=== PATIENT | male | born 1980 | race African-American/Black ===

== ENCOUNTER 2019-05-08 08:14 | Emergency (ER) | payer BC, SELFPAY ==
[2019-05-08 08:15] VITALS: BP 146/109; PULSE 98; RESP 16; TEMP 36.7; O2SAT 97; BMI 30.4
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
== END 2019-05-08 08:36 | disposition home or self-care (01) ==
LOC: ED 08:30
PROVIDERS: Emergency Provider Emergency Medicine
DX: S40.871A Other superficial bite of right upper arm, initial encounter (principal); Y04.1XXA Assault by human bite, initial encounter; Y93.9 Activity, unspecified; Y92.9 Unspecified place or not applicable
CPT/HCPCS: 99282

== ENCOUNTER 2020-11-11 12:39 | Emergency (ER) | payer BC, SELFPAY ==
[2020-11-11 12:39] VITALS: BP 169/86; PULSE 95; RESP 16; TEMP 36.3; O2SAT 97; BMI 35.2
--- NOTE | 2020-11-11 12:57 | CT_ITS ---
STUDY: CT BRAIN WITHOUT CONTRAST REASON FOR EXAM: Male, 40 years old. Headache RADIATION DOSAGE (If Supplied By Facility): CTDIvol = ( 44.99 ) mGy, DLP = ( 762.36 ) mGycm TECHNIQUE: Transaxial CT imaging of the brain was performed without administration of intravenous contrast material. Individualized dose optimization techniques were used for this CT. COMPARISON: No relevant priors. FINDINGS: Normal soft tissue structures. Normal calvarium. Normal size ventricles and extra-axial spaces for the patient''s age. Normal white matter tracts of the cerebral hemispheres. Normal basal ganglia and thalami. Normal brainstem. Normal cerebellum. There is no intracranial hemorrhage. There are no findings of an acute ischemic infarction. Normal visualized paranasal sinuses. CT/Brain/Head without Contrast IMPRESSION: Normal unenhanced CT scan of the brain. Electronically Signed: Dano Truong MD at 13:47 EDT , Service support ,
--- NOTE | 2020-11-11 12:58 | EX.ED.DYSGE1 ---
HPI History of Present Illness Chief Complaint: Dizziness Informant: patient Onset/Context/Timing Onset: Today Quality: Lightheaded Location: Right side of head Worsened by: Nothing Relieved by: Nothing Associated Symptoms Associated Symptoms: Numbness over the right side of his head Narrative Narrative: Patient presents with dizziness that he describes as lightheaded. Patient states he had a similar episode 2 days ago at home. 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 Patient states he felt like he was going to pass out. Patient states his episode Monday lasted several hours. Patient admits to some numbness over the right side of his head. Patient admits to mild headache. Patient denies any neck pain. Patient denies any hearing changes. [facility] Medical History Hypertension Allergy/AdvReac Type Severity Reaction Status Date / Time lisinopril Allergy Swelling Verified 11/11/20 12:42 no surgical history Social History (Updated 11/11/20 @ 13:[address] Devante Yousif DO) Smoking Status: Current every day smoker alcohol intake: current alcohol intake frequency: a few times a week ROS ROS ED Constitutional Constitutional ED: Denies chills or fever(s) Eyes Eyes: Denies blurry vision or change in vision ENT ENT ED: Denies rhinorrhea or sore throat Cardiovascular Cardiovascular: Denies chest pain or palpitations Respiratory/Chest Respiratory/Chest: Denies cough or dyspnea Gastrointestinal Gastrointestinal: Denies nausea or vomiting Genitourinary Genitourinary ED: Denies dysuria or hematuria Musculoskeletal Musculoskeletal: Reports back pain; Denies neck pain Integumentary Denies abscess or rash Neurologic Neurologic: Reports headache(s) and weakness Allergic/Immunologic Allergic/Immunologic ED: Denies mouth swelling or urticaria EXAM Physical Exam Const Vital Signs: 11/11/20 12:39 11/11/20 13:00 11/11/20 14:50 Temperature 97.4 F L Temperature Source Temporal Pulse Rate 95 89 Respiratory Rate 16 25 H Respiratory Pattern Normal Blood Pressure 169/86 H 173/90 H Blood Pressure Mean 113 117 Pulse Ox 97 100 Oxygen Delivery Method Room Air Room Air Positive well nourished and well developed General Appearance ED: well developed HEENT normocephalic and atraumatic Eyes PERRL and EOMs intact bilaterally Eyes Narrative: Funduscopic examination is benign Neck supple and no JVD Resp normal respiratory effort and clear to auscultation bilaterally Cardio no murmurs Rate: regular rate Rhythm: regular rhythm GI non-tender and non-distended Auscultation: normoactive bowel sounds Palpation: soft Extremity normal to inspection General Extremety ED: Negative for edema or tenderness General Extremity: Negative for edema Neuro oriented x3, CN's II-XII intact bilaterally and no sensory deficits noted Sensorium / Orientation: alert Motor Exam: strength 5/5 throughout Psych mental status grossly normal Skin Rashes: no rashes MDM MDM MDM Narrative Medical decision making narrative: Patient was given IV fluids, Reglan, and Benadryl. CBC, PT with INR, PTT and comprehensive metabolic profile were obtained and were all within normal limits. CT scan of the brain was obtained. There is no acute intracranial abnormality. This was interpreted by the radiologist and reviewed by myself. Patient is feeling better on reevaluation. Patient was advised to follow-up with his primary care physician in 5 to 7 days for further evaluation. Patient understood and was agreeable with the plan. All questions were answered. Lab Data Labs: Laboratory Results - last 24 hr 11/11/20 11/11/20 11/11/20 13:15 13:15 13:15 WBC 7.5 RBC 4.59 L Hgb 14.2 Hct 42.6 MCV 92.8 MCH 30.9 MCHC 33.3 RDW Std Deviation 49.1 H RDW Coeff of Duane 14.3 Plt Count 337 MPV 11.0 Immature Gran % (Auto) 0.100 Neut % (Auto) 64.9 Lymph % (Auto) 24.2 Forrest % (Auto) 9.4 Eos % (Auto) 1.1 Baso % (Auto) 0.3 Absolute Neuts (auto) 4.9 Absolute Lymphs (auto) 1.81 Nucleated RBC % 0 ESR 13 PT 11.3 L INR 0.9 APTT 28.9 Sodium 138 Potassium 3.7 Chloride 102 Carbon Dioxide 31.0 Anion Gap 5 BUN 20 H Creatinine 1.26 Estim Creat Clear Calc 87.25 Est GFR (MDRD) Af Amer 82 Est GFR (MDRD) Non-Af 68 BUN/Creatinine Ratio 15.9 Glucose 91 Calcium 9.7 Total Bilirubin 0.70 AST 43 H ALT 44 Alkaline Phosphatase 66 Total Protein 8.0 Albumin 3.9 Globulin 4.1 Albumin/Globulin Ratio 1.0 Radiography Diagnostic Testing: Radiology Impression Brain CT 11/11/20 12:57 IMPRESSION: Normal unenhanced CT scan of the brain. Electronically Signed: Dano Truong MD at 13:47 EDT , Service support , Discharge Plan Triage Chief Complaint: Dizziness ED Provider: Devante Yousif Dx/Rx/DC Orders Clinical Impression: Episodic lightheadedness Instructions: ED Dizziness, Uncertain Cause Primary Care Provider: Care Physician,No Primary Referrals: Ishan Santana, [NON-STAFF] - 5-7 Days Care Physician,No Primary [Primary Care Provider] - Disposition Disposition: Home, self care
[2020-11-11] MEDS: DiphenhydrAMINE 50 MG/ML Syringe 25 MG IV (13:21)
[2020-11-11] MEDS: 0.9% Normal Saline 1,000 ML 1000 ML IV (13:21)
[2020-11-11] MEDS: Metoclopramide 10 MG/2 ML Vial IV (13:22)
[2020-11-11 13:36] LABS: Absolute Lymphocyte Count 1.81 X10^3/uL (0.83-4.51); Absolute Neutrophil Count 4.9 X10^3/uL (2.0-7.7); Basophil# 0.02 X10^3/uL; Basophil% 0.3 % (0-1); Eosinophil# 0.08 X10^3/uL; Eosinophils% 1.1 % (0-5); Hematocrit 42.6 % (40-54); Hemoglobin 14.2 g/dL (13.0-16.5); Lymphocyte # 1.81 X10^3/ul (0.83-4.51); Lymphocyte % 24.2 % (19-41); Mean Corp Hgb Conc 33.3 g/dL (32-36); Mean Corpuscular Hgb 30.9 pg (27.0-32.0); Mean Corpuscular Volume 92.8 fL (80-94); Monocyte% 9.4 % (0-10); NRBC Flagged by Analyzer 0 % (0-5); Neutrophil # 4.86 X10^3/uL (2.7-7.7); Neutrophil % 64.9 % (47-70); Platelet Count 337 K/mm3 (150-450); RBC Distribution Width CV 14.3 % (11.6-14.6); RBC Distribution Width SD 49.1 fl (35.1-43.9); Red Blood Count 4.59 M/mm3 (4.6-6.2); White Blood Count 7.5 K/mm3 (4.4-11.0)
[2020-11-11 13:44] LABS: International Normalized Ratio 0.9; Prothrombin Time (Protime)PT. 11.3 SECONDS (11.7-14.9)
[2020-11-11 13:45] LABS: AST(SGOT) 43 U/L (15-37); Alanine Aminotransfer ALT/SGPT 44 U/L (16-61); Albumin, Serum 3.9 g/dL (3.2-5.0); Alkaline Phosphatase 66 U/L (45-117); Anion Gap 5 (5-15); BUN 20 mg/dL (7-18); BUN/Creat Ratio 15.9 RATIO (10-20); Calcium,Total 9.7 mg/dL (8.5-10.1); Chloride 102 mmol/L (98-107); Creatinine, Serum 1.26 mg/dL (0.70-1.30); EST Glomerular Filtration Rate 68 mL/min (>60); Est Glom Filt Rate - Afr Amer 82 mL/min (>60); Estimated Creatinine Clearance 87.25 ml/min; Globulin 4.1 g/dL (2.2-4.2); Glucose 91 mg/dL (74-106); Partial Thromboplast Time 28.9 Seconds (24.1-36.2); Potassium 3.7 mmol/L (3.5-5.1); Sodium Level 138 mmol/L (136-145)
[2020-11-11 13:46] LABS: Erythrocyte Sedimentation Rate 13 mm/hr (0-20)
[2020-11-11 14:50] VITALS: BP 173/90; PULSE 89; RESP 25; O2SAT 100
== END 2020-11-11 15:45 | disposition home or self-care (01) ==
PROVIDERS: Emergency Provider Emergency Medicine
DX: R42 Dizziness and giddiness (principal); F17.200 Nicotine dependence, unspecified, uncomplicated; R51.9 Headache, unspecified
CPT/HCPCS: 70450; 80053; 85025; 85610; 85652; 85730; 96361; 96374; 96375; 99282; J7030

== ENCOUNTER → 2023-04-07 | Outpatient (CLI) | payer OTHER, SELFPAY ==
[2023-04-11 17:07] LABS: QNTFERON TB Mitogen Value > 10.00 IU/mL (.); QNTFERON TB Nil Value 0.08 IU/mL (.); QNTFERON TB1+ Ag Value 0.09 IU/mL (.); QNTFERON TB2+ Ag Value 0.08 IU/mL (.); QNTIFERON TB Positive Criteria Negative (Negative)
== END | disposition home or self-care (01) ==
LOC: MTLAB 11:54
PROVIDERS: Referring Provider Physician Assistant Surgical; Visit Provider Physician Assistant Surgical
DX: Z11.1 Encounter for screening for respiratory tuberculosis (principal)
CPT/HCPCS: 36415; 86480

== ENCOUNTER 2023-09-07 08:38 | Emergency (ER) | payer BC, SELFPAY ==
[2023-09-07 08:40] VITALS: BP 142/76; PULSE 90; RESP 16; TEMP 36.8; O2SAT 97; BMI 31.0
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
[2023-09-07 11:04] VITALS: BP 138/68; PULSE 77; RESP 18; O2SAT 97
--- OUTSIDE RECORDS SUMMARY | 2023-09-07 12:32 | XMS RPT_ITS | CCD ---
Author Name Unknown Address [address] [place] [address] Organization [facility] Care Team Providers Care Mend Worker Name Role Phone ECTOR REYES DO Primary Care Physician [phone] ARELIS KOENIG MD Attending Unavailable ECTOR REYES DO Primary Care Unavailable ECTOR REYES DO Attending Unavailable ECTOR REYES DO Primary Care Unavailable Jennifer Campoverde DO Primary Care Provider JENNIFER CAMPOVERDE Attending Unavailable JENNIFER CAMPOVERDE Primary Care Unavailable Allergies Allergy Classification Reported Allergen(s) Allergy Type Date of Onset Reaction(s) Facility (5 sources) Angiotensin-conv erting enzyme inhibitor agent; Translations: [angiotensin converting enzyme inhibitors] Drug allergy 1 Angioedema, Swelling [facility] Work Phone: (3 sources) Lisinopril; Translations: [lisinopril] Drug Allergy lips swell [facility] Work Phone: (2 sources) Lisinopril Propensity to adverse reactions [address] [facility] Medications Current Medications Medication Drug Class(es) Dates Sig (Normalized) Sig (Original) hydroCHLOROthiazide 25 mg oral tablet (5 sources) Thiazide Diuretic Start: 3 End: 3 take 1 tablet by mouth once daily hydroCHLOROthiazide (HYDRODiuril) 25 MG tablet Indications: Essential hypertension Take 1 tablet (25 mg) by mouth daily. 90 tablet 3 06/14/2023 Active Problems Active Problems Problem Classification Problem Date Documented Da te Episodic/Chronic Allergic reactions (1 source) Allergy to drug 06-15-2022 Episodic Anxiety disorders (2 sources) Panic attack 12-01-2021 Chronic Deficiency and other anemia (2 sources) Anemia 12-01-2021 Episodic Essential hypertension (6 sources) Hypertensive disorder; Translations: [Essential hypertension] Onset: 06-14-2023 09-04-2019 Chronic Gastrointestinal hemorrhage (3 sources) Hematochezia 11-19-2019 Episodic Heart valve disorders (3 sources) Heart murmur 01-13-2021 Episodic Hypertension with complications and secondary hypertension (3 sources) Hypertensive urgency 11-15-2019 Chronic Past or Other Problems Problem Classification Problem Date Documented Da te Episodic/Chronic Nutritional deficiencies (2 sources) Deficiency of other specified B group vitamins; Translations: [Deficiency of other specified B group vitamins] Onset: 09-02-2022 Episodic Results Test Name Value Interpretation Reference Range Facil ity Vital Signs Date Time Vital Sign Value Performing Clinician Radha zambrano 06-14-2023 07:59-0500 Body height 190.5 cm Jennifer Campoverde DO Work Phone: [facility] 06-14-2023 07:59-0500 Body mass index (BMI) [Ratio] 33.12 kg/m2 Jennifer Campoverde DO Work Phone: [facility] 06-14-2023 07:59-0500 Body weight 120.2 kg Jennifer Campoverde DO Work Phone: [email or web address] [facility] 06-14-2023 07:59-0500 Diastolic blood pressure 77 mm[Hg] Jennifer Campoverde DO Work Phone: [facility] 06-14-2023 07:59-0500 Heart rate 80 /min Jennifer Campoverde DO Work Phone: [email or web address] [facility] 06-14-2023 07:59-0500 Systolic blood pressure 125 mm[Hg] Jennifer Campoverde DO Work Phone: [facility] 12-24-2021 11:14-0400 Body temperature 98.6 [degF] DR JAMA MILLER DO [facility] 12-24-2021 11:14-0400 Body weight 115.[address] YUN PAUL DO [facility] 12-24-2021 11:14-0400 Diastolic blood pressure 72 mm[Hg] DR YUN PAUL DO [facility] 12-24-2021 11:14-0400 Heart rate 91 /min DR JAMA MILLER DO [facility] 12-24-2021 11:14-0400 Respiratory rate 16 /min DR YUN ROBLAUREEN DO [facility] 12-24-2021 11:14-0400 Systolic blood pressure 117 mm[Hg] DR YUN ROBLAUREEN DO [facility] 11-29-2021 18:03-0400 Diastolic blood pressure 90 mm[Hg] CHELLE CADE MD [facility] 11-29-2021 18:03-0400 Heart rate 81 /min CHELLE CADE MD [facility] 11-29-2021 18:03-0400 Mean blood pressure 107 mm[Hg] CHELLE CADE MD [facility] 11-29-2021 18:03-0400 Respiratory rate 16 /min CHELLE CADE MD [facility] 11-29-2021 18:03-0400 Systolic blood pressure 142 mm[Hg] CHELLE CADE MD [facility] 11-29-2021 16:23-0400 Body temperature 98.24 [degF] CHELLE CADE MD [facility] 11-29-2021 16:23-0400 Body weight 113.6 kg CHELLE CADE MD [facility] 11-29-2021 16:23-0400 Diastolic blood pressure 93 mm[Hg] CHELLE CADE MD [facility] 11-29-2021 16:23-0400 Heart rate 84 /min CHELLE CADE MD [facility] 11-29-2021 16:23-0400 Mean blood pressure 109 mm[Hg] CHELLE CADE MD [facility] 11-29-2021 16:23-0400 Respiratory rate 16 /min CHELLE CADE MD [facility] 11-29-2021 16:23-0400 Systolic blood pressure 141 mm[Hg] CHELLE CADE MD [facility] Encounters Encounter Date Encounter Type Care Provider Facility Start: 06-14-2023 End: 06-14-2023 ambulatory [facility] Start: 06-14-2023 End: 06-14-2023 Encounter for general adult medical examination without abnormal findings JENNIFER [facility] Start: 06-14-2023 End: 06-14-2023 Initial preventive medicine new patient 40-64yrs Jennifer Campoverde DO Work Phone: [facility] Procedures Date Procedure Procedure Detail Performing Clinician Start: 06-14-2023 Adult depression scr eening assessment Jennifer Campoverde DO Work Phone: Start: 02-08-2019 Cardiovascular stress testing CHELLE CADE MD Start: 02-08-2019 Echocardiography CHELLE ARCINIEGA MD Plan of Treatment Date Care Activity Detail Author Start: 2042 RSV Immunization age d 60 or older (1 - 1-dose 60+ series) RSV Immunization aged 60 or older (1 - 1-dose 60+ series) [facility] Start: 01-04-2032 Zoster Vaccines (1 of 2) Zoster Vacc linda (1 of 2) [facility] Start: 04-14-2030 DTaP/Tdap/Td Vaccine s (3 - Td or Tdap) DTaP/Tdap/Td Vaccines (3 - Td or Tdap) [facility] Start: 06-17-2024 End: 06-17-2024 Patient encounter procedure 06/17/2024 7:40 AM EST Office Visit [facility] [address] [place] [address] Jennifer Campoverde DO [address] [place] [address] [facility] Start: 06-14-2024 Depression Screening Depression Scre ening [facility] Start: 06-14-2023 End: 06-14-2024 CBC panel - Blood by Automated count CBC Lab Routine Annual physical exam Expected: 06/14/2023 (Approximate), Expires: 06/14/2024 [facility] Work Phone: Immunizations Immunization Date Immunization Notes Care Provider Fa cility 08-19-2021 COVID-19, mRNA, LNP- S, PF, 100 mcg or 50 mcg dose; Translations: [Moderna COVID-19 Vaccine] CHELLE CADE MD [facility] 02-15-2021 SARS-CoV-2 (COVID-19 ) [id number] vaccine CHELLE CADE MD [facility] Payers Date Payer Category Payer Self-pay 1980 Unknown [id number] 1980 Unknown [id number] Social History Date Type Detail Facility Start: 01-13-2021 End: 06-14-2023 Tobacco smoking status Never smoked tobacco (finding) [facility] Start: 1980 Sex Assigned At Male A [facility] Start: 06-14-2023 Tobacco use and exposure Smoke less tobacco non-user [facility] Start: 06-14-2023 Alcohol intake Current drinke r of alcohol (finding) [facility] Start: 06-14-2023 History of Social function [facility] Start: 06-14-2023 [facility] Utilities [facility] Has the [employer], [employer], or [employer] threatened to shut off services in your home in past 12Mo Yes [facility] Are you now , , , , never or living with a partner? Never [facility] How often to you hav e a drink containing alcohol? 2-4 times a month [facility] How many standard dr inks containing alcohol do you have on a typical day? 1 or 2 [facility] How often do you hav e 6 or more drinks on 1 occasion? Never [facility] How hard is it for y ou to pay for the very basics like food, housing, medical care, and heating Somewhat hard [facility] Do you feel stress - tense, restless, nervous, or anxious, or unable to sleep at night because your mind is troubled all the time - these days [OSQ] Rather much [facility] (I/We) worried wheth er (my/our) food would run out before (I/we) got money to buy more. Sometimes true [facility] In the past 12 month s, has lack of transportation kept you from medical appointments or from getting medications? No [facility] At any time in the p ast 12 months, were you homeless or living in jail [including now]? No [facility] Start: 06-14-2023 Gender identity Identifies as male gender (finding) [facility] Start: 06-14-2023 Sexual orientation Heterosexual (fin ding) [facility] Tobacco smoking stat [facility] Tobacco smoking consumption unknown [facility] NEGATED: Highlighted rowStart: CLARIBELF History of tobacco use Passive smoker [facility] Functional Status Date Assessment Result Facility 12-24-2021 Functional Status Standard Safet y ID band on, Call device within reach, Bed in low position, Wheels locked, Upper/Half-Length side-rails up, Bedside Cart Locked, Safety level maintained [facility] 11-29-2021 Functional Status Independent [facility] 11-29-2021 Functional Status Standard Safet y ID band on, Allergy Band on, Call device within reach, Bed in low position, Wheels locked, Upper/Half-Length side-rails up, Phone within reach, personal items within reach [facility] Mental Status Date Assessment Result Facility 12-24-2021 Mental Status Oriented x 4 [facility] 11-29-2021 Mental Status Orientation Oriented x 4 [facility] 11-29-2021 Mental Status [facility] Clinical Notes 03-16-2021 to 06-14-2023 Jennifer Campoverde DO - 06/14/2023 7:40 AM ESTPatient InstructionsTelephone Encounter - Alice Chaney - 06/09/2023 5:48 PM ESTTelephone Encounter - Alice Chaney - 06/09/2023 5:48 PM ESTLaboratory Note Date & Type Note Facility 06-14-2023 History of Present illness Narrative Images from the original note were not included. [facility] [address] [place] [address] Visit Type: New Patient Appointment PCP: Jennifer Campoverde DO Reason for Visit: New Patient and Establish Care (Varicose veins on R leg for years. ) Assessment and Plan Lou was seen today for new patient and establish care. Diagnoses and all orders for this visit: Annual physical exam Comments: discussed vaccinations - declined today. colon cancer screen at age 47yo. routine labs ordered. Orders: - CBC; Future - Comprehensive metabolic panel; Future - Lipid panel; Future - CBC - Comprehensive metabolic panel - Lipid panel Essential hypertension Comments: well controlled on 3 drug regimen. Continue metop, hctz and valsartan. Monitor labs. Encouraged more cardio exercise. Orders: - valsartan (Diovan) 80 MG tablet; Take 1 tablet (80 mg) by mouth daily. - metoprolol succinate XL (Toprol-XL) 100 MG 24 hr tablet; Take 1 tablet (100 mg) by mouth daily. - hydroCHLOROthiazide (HYDRODiuril) 25 MG tablet; Take 1 tablet (25 mg) by mouth daily. Asymptomatic varicose veins of right lower extremity Comments: given the risk of these veins causing superficial clots and proximity to deep circulation is unclear, refer to vascular to discuss more definitive mgmt. Orders: - MG Vascular Surgery; Future Screening for HIV without presence of risk factors - HIV-1 and HIV-2 Antigen-Antibody Screen; Future - HIV-1 and HIV-2 Antigen-Antibody Screen Follow up in about 1 year (around 06/14/2024). Subjective HPI Presents for a new patient visit. 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 He has the following concerns today: Yesterday ran out of valsartan. Going to the gym 3-5 days per week. Tried the treadmill for a while, but really boring. Varicose veins in legs - R popliteal space is the worst - no pain - not sure about why he has these, unclear if fam hx - no prior injury or surgery to the RLE Review of Systems Pertinent ROS noted in the HPI and all other systems are negative. Allergies Allergen Reactions Ruel Inhibitors Angioedema and Swelling Other reaction(s): lips swell Lisinopril Swelling Outpatient Medications Prior to Visit Medication Sig Dispense Refill hydroCHLOROthiazide (HYDRODiuril) 25 MG tablet Take 25 mg by mouth daily. metoprolol succinate XL (Toprol-XL) 100 MG 24 hr tablet Take 100 mg by mouth daily. valsartan (Diovan) 80 MG tablet Take 80 mg by mouth daily. No facility-administered medications prior to visit. Past Medical History: Diagnosis Date Hypertension Social History Socioeconomic History Marital status: Single Occupational History Occupation: factory work Tobacco Use Smoking status: Never Passive exposure: Never Smokeless tobacco: Never Vaping Use Vaping Use: Never used Substance and Sexual Activity Alcohol use: Yes Drug use: Never Social Determinants of Health Financial Resource Strain: Medium Risk (06/14/2023) Overall Financial Resource Strain (CARDIA) Difficulty of Paying Living Expenses: Somewhat hard Food Insecurity: Food Insecurity Present (06/14/2023) Hunger Vital Sign Worried About Running Out of Food in the Last Year: Sometimes true Ran Out of Food in the Last Year: Sometimes true Transportation Needs: No Transportation Needs (06/14/2023) PRAPARE - Transportation Lack of Transportation (Medical): No Lack of Transportation (Non-Medical): No Physical Activity: Sufficiently Active (06/14/2023) Exercise Vital Sign Days of Exercise per Week: 4 days Minutes of Exercise per Session: 120 min Stress: Stress Concern Present (06/14/2023) [employer] [place] [employer] - Occupational Stress Questionnaire Feeling of Stress : Rather much Social Connections: Moderately Integrated (06/14/2023) Social Connection and Isolation Panel [NHANES] Frequency of Communication with Friends and Family: More than three times a week Frequency of Social Gatherings with Friends and Family: Once a week Attends Taoism Services: 1 to 4 times per year Active Member of Clubs or Organizations: Yes Attends Club or Organization Meetings: More than 4 times per year Marital Status: Never Housing Stability: High Risk (06/14/2023) Housing Stability Vital Sign Unable to Pay for Housing in the Last Year: Yes Number of Places Lived in the Last Year: 1 Unstable Housing in the Last Year: No History reviewed. No pertinent surgical history. Family History Problem Relation Name Age of Onset Other Mother hypoglycimia. Alzheimer's disease Maternal Grandmother Colon cancer Maternal Grandfather Objective BP 125/77 (BP Location: Left arm, Patient Position: Sitting, BP Cuff Size: Large adult) Pulse 80 Ht 6' 3 (1.905 m) Wt 265 lb (120 kg) BMI 33.12 kg/m Physical Exam Vitals reviewed. Constitutional: General: He is not in acute distress. Appearance: Normal appearance. HENT: Head: Normocephalic and atraumatic. Right Ear: External ear normal. There is impacted cerumen. Left Ear: External ear normal. There is impacted cerumen. Mouth/Throat: Mouth: Mucous membranes are moist. Pharynx: Oropharynx is clear. Tonsils: No tonsillar exudate or tonsillar abscesses. 1+ on the right. 1+ on the left. Eyes: Extraocular Movements: Extraocular movements intact. Conjunctiva/sclera: Conjunctivae normal. Pupils: Pupils are equal, round, and reactive to light. Neck: Thyroid: No thyromegaly. Cardiovascular: Rate and Rhythm: Normal rate and regular rhythm. Pulses: Normal pulses. Heart sounds: No murmur heard. Pulmonary: Effort: Pulmonary effort is normal. No respiratory distress. Breath sounds: Normal breath sounds. Abdominal: General: Bowel sounds are normal. There is no distension. Palpations: There is no hepatomegaly, splenomegaly or mass. Tenderness: There is no abdominal tenderness. Musculoskeletal: Cervical back: Normal range of motion and neck supple. Right lower leg: No edema. Left lower leg: No edema. Lymphadenopathy: Cervical: No cervical adenopathy. Skin: General: Skin is warm and dry. Neurological: Mental Status: He is alert. Psychiatric: Mood and Affect: Mood normal. Behavior: Behavior normal. Health Maintenance Health Maintenance Due Topic Date Due Hepatitis B Vaccines (1 of 3 - 3-dose series) Never done Lipid Panel Never done HIV Screening Never done MMR Vaccines (1 of 1 - Standard series) Never done Varicella Vaccines (1 of 2 - 2-dose childhood series) Never done Depression Screening Never done Hepatitis C Screening Never done Influenza Vaccine (1) Never done COVID-19 Vaccine ( season) 2023 Screening needed: Hepatitis C HIV Diabetes Cholesterol Vaccinations needed: none Medications Discontinued During This Encounter Medication Reason valsartan (Diovan) 80 MG tablet Reorder hydroCHLOROthiazide (HYDRODiuril) 25 MG tablet Reorder metoprolol succinate XL (Toprol-XL) 100 MG 24 hr tablet Reorder Jennifer Campoverde DO 06/14/2023 9:34 AM Patient Instructions Please call Central Scheduling at [phone] to arrange your Vascular visit. documented in this encounter [facility] 06-14-2023 Instructions Jennifer Campoverde DO - 06/14/2023 7:40 AM EST Please call Central Scheduling at [phone] to arrange your Vascular visit. documented in this encounter [facility] 06-09-2023 Telephone encounter Note Name of caller: Lou Relation to patient: patient Contact phone number: [phone] Appointment scheduled with: Dr Campoverde Appointment date & time: 06/14/23 7:40am Reason for visit (are you having any symptoms) : Establish care, new to the area, renew current scripts Transportation issues/ concerns: N/A Special accommodations? ( wheel chair, etc) : N/A Current medications: Valsartin 80mg Metoprolol 100mg Hydrochlorothiazide Any refills need: States was given a short supply until able to see new PCP Valsartin 80mg Metoprolol 100mg Hydrochlorothiazide Any chronic conditions the provider should be aware of: N/A [facility] 06-09-2023 Miscellaneous Notes Name of caller: Lou Relation to patient: patient Contact phone number: [phone] Appointment scheduled with: Dr Campoverde Appointment date & time: 06/14/23 7:40am Reason for visit (are you having any symptoms) : Establish care, new to the area, renew current scripts Transportation issues/ concerns: N/A Special accommodations? ( wheel chair, etc) : N/A Current medications: Valsartin 80mg Metoprolol 100mg Hydrochlorothiazide Any refills need: States was given a short supply until able to see new PCP Valsartin 80mg Metoprolol 100mg Hydrochlorothiazide Any chronic conditions the provider should be aware of: N/A documented in this encounter [facility] 12-24-2021 Hospital Discharge instructions Patient Education 12/24/2021 11:33:47 Back Care Tips Back Care Tips Caring for your back These are things you can do to prevent a recurrence of acute back pain and to reduce symptoms from chronic back pain: Maintain a healthy weight. If you are overweight, losing weight will help most types of back pain. Exercise is an important part of recovery from most types of back pain. The muscles behind and in front of the spine support the back. This means strengthening both the back muscles and the abdominal muscles will provide better support for your spine. Swimming and brisk walking are good overall exercises to improve your fitness level. Practice safe lifting methods (below). Practice good posture when sitting, standing and walking. Avoid prolonged sitting. This puts more stress on the lower back than standing or walking. Wear quality shoes with sufficient arch support. Foot and ankle alignment can affect back symptoms. Women should avoid wearing high heels. Therapeutic massage can help relax the back muscles without stretching them. During the first 24 to 72 hours after an acute injury or flare-up of chronic back pain, apply an ice pack to the painful area for 20 minutes and then remove it for 20 minutes, over a period of 60 to 90 minutes, or several times a day. As a safety precaution, do not use a heating pad at bedtime. Sleeping on a heating pad can lead to skin hatfield or tissue damage. You can alternate ice and heat therapies. Medicines Talk to your healthcare provider before using medicines, especially if you have other medical problems or are taking other medicines. You may use acetaminophen or ibuprofen to control pain, unless your healthcare provider prescribed other pain medicine. If you have chronic conditions like diabetes, liver or kidney disease, stomach ulcers, or gastrointestinal bleeding, or are taking blood thinners, talk with your healthcare provider before taking any medicines. Be careful if you are given prescription pain medicines, narcotics, or medicine for muscle spasm. They can cause drowsiness, affect your coordination, reflexes, and judgment. Do not drive or operate heavy machinery while taking these types of medicines. Take prescription pain medicine only as prescribed by your healthcare provider. Lumbar stretch Here is a simple stretching exercise that will help relax muscle spasm and keep your back more limber. If exercise makes your back pain worse, don t do it. Lie on your back with your knees bent and both feet on the ground. Slowly raise your left knee to your chest as you flatten your lower back against the floor. Hold for 5 seconds. Relax and repeat the exercise with your right knee. Do 10 of these exercises for each leg. Safe lifting method Don t bend over at the waist to lift an object off the floor. Instead, bend your knees and hips in a squat. Keep your back and head upright Hold the object close to your body, directly in front of you. Straighten your legs to lift the object. Lower the object to the floor in the reverse fashion. If you must slide something across the floor, push it. Posture tips Sitting Sit in chairs with straight backs or low-back support. Keep your knees lower than your hips, with your feet flat on the floor. When driving, sit up straight. Adjust the seat forward so you are not leaning toward the steering wheel. A small pillow or rolled towel behind your lower back may help if you are driving long distances. Standing When standing for long periods, shift most of your weight to one leg at a time. Alternate legs every few minutes. Sleeping The best way to sleep is on your side with your knees bent. Put a low pillow under your head to support your neck in a neutral spine position. Avoid thick pillows that bend your neck to one side. Put a pillow between your legs to further relax your lower back. If you sleep on your back, put pillows under your knees to support your legs in a slightly flexed position. Use a firm mattress. If your mattress sags, replace it, or use a 1/2-inch plywood board under the mattress to add support. Follow-up care Follow up with your healthcare provider, or as advised. If X-rays, a CT scan or an MRI scan were taken, they will be reviewed by a radiologist. You will be notified of any new findings that may affect your care. Call 911 Call 911 if any of the following occur: Trouble breathing Confusion Very drowsy Fainting or loss of consciousness Rapid or very slow heart rate Loss of bowel or bladder control When to seek medical advice Call your healthcare provider right away if any of the following occur: Pain becomes worse or spreads to your arms or legs Weakness or numbness in one or both arms or legs Numbness in the groin area [id number] [employer]. [address] [place] [address]. All rights reserved. This information is not intended as a substitute for professional medical care. Always follow your healthcare professional's instructions. Follow Up Care 12/24/2021 11:10:15 With:LATOYA Landeros Address: [address] [place] [address]- When:2-4 days With:ECTOR REYES DO Address: [address] [place] [address] [phone] When:2-[address] [facility] 12-24-2021 Emergency department Discharge summary Discharge Instructions Thank you for allowing [facility] to assist you with your healthcare needs. The following is important discharge information regarding your hospital visit. Diagnosis from Today's Visit Back pain What to Do Next Instructions from Your Care Team No qualifying data available. Post Acute Orders No qualifying data available. You Need to Schedule the Following Appointments Follow Up with LATOYA Landeros When Within 2-4 days Where: [address] [place] [address]- Follow Up with ECTOR REYES DO When Within 2-4 days Where: [address] [place] [address] [phone] Allergies RUEL inhibitors (angioedema) lisinopril (lips swell) Medications Please ask your primary doctor or pharmacist before taking any other medication not listed, including over the counter drugs, herbal medications, vitamins and or supplements as they may interact with your home medications. What How Much When Why Instructions Last Dose Unchanged hydroCHLOROthiazide (hydroCHLOROthiazide 25 mg oral tablet) 1 tab(s) by mouth Once a day Hypertension Unchanged metoprolol (metoprolol succinate 100 mg oral TABLET extended release) 1 tab(s) by mouth Once a day Hypertension Unchanged valsartan (valsartan 80 mg oral tablet) 1 tab(s) by mouth Every day Hypertension Aware of RUEL allergy Please take this list to your next doctor s visit. Bring all medications you take, including over the counter medications, herbals and other supplements with you to your doctor s visit. Patients and families are reminded to discard old lists and to update any records with all medication providers or retail pharmacies. Education Materials Back Care Tips Caring for your back These are things you can do to prevent a recurrence of acute back pain and to reduce symptoms from chronic back pain: Maintain a healthy weight. If you are overweight, losing weight will help most types of back pain. Exercise is an important part of recovery from most types of back pain. The muscles behind and in front of the spine support the back. This means strengthening both the back muscles and the abdominal muscles will provide better support for your spine. Swimming and brisk walking are good overall exercises to improve your fitness level. Practice safe lifting methods (below). Practice good posture when sitting, standing and walking. Avoid prolonged sitting. This puts more stress on the lower back than standing or walking. Wear quality shoes with sufficient arch support. Foot and ankle alignment can affect back symptoms. Women should avoid wearing high heels. Therapeutic massage can help relax the back muscles without stretching them. During the first 24 to 72 hours after an acute injury or flare-up of chronic back pain, apply an ice pack to the painful area for 20 minutes and then remove it for 20 minutes, over a period of 60 to 90 minutes, or several times a day. As a safety precaution, do not use a heating pad at bedtime. Sleeping on a heating pad can lead to skin hatfield or tissue damage. You can alternate ice and heat therapies. Medicines Talk to your healthcare provider before using medicines, especially if you have other medical problems or are taking other medicines. You may use acetaminophen or ibuprofen to control pain, unless your healthcare provider prescribed other pain medicine. If you have chronic conditions like diabetes, liver or kidney disease, stomach ulcers, or gastrointestinal bleeding, or are taking blood thinners, talk with your healthcare provider before taking any medicines. Be careful if you are given prescription pain medicines, narcotics, or medicine for muscle spasm. They can cause drowsiness, affect your coordination, reflexes, and judgment. Do not drive or operate heavy machinery while taking these types of medicines. Take prescription pain medicine only as prescribed by your healthcare provider. Lumbar stretch Here is a simple stretching exercise that will help relax muscle spasm and keep your back more limber. If exercise makes your back pain worse, don t do it. Lie on your back with your knees bent and both feet on the ground. Slowly raise your left knee to your chest as you flatten your lower back against the floor. Hold for 5 seconds. Relax and repeat the exercise with your right knee. Do 10 of these exercises for each leg. Safe lifting method Don t bend over at the waist to lift an object off the floor. Instead, bend your knees and hips in a squat. Keep your back and head upright Hold the object close to your body, directly in front of you. Straighten your legs to lift the object. Lower the object to the floor in the reverse fashion. If you must slide something across the floor, push it. Posture tips Sitting Sit in chairs with straight backs or low-back support. Keep your knees lower than your hips, with your feet flat on the floor. When driving, sit up straight. Adjust the seat forward so you are not leaning toward the steering wheel. A small pillow or rolled towel behind your lower back may help if you are driving long distances. Standing When standing for long periods, shift most of your weight to one leg at a time. Alternate legs every few minutes. Sleeping The best way to sleep is on your side with your knees bent. Put a low pillow under your head to support your neck in a neutral spine position. Avoid thick pillows that bend your neck to one side. Put a pillow between your legs to further relax your lower back. If you sleep on your back, put pillows under your knees to support your legs in a slightly flexed position. Use a firm mattress. If your mattress sags, replace it, or use a 1/2-inch plywood board under the mattress to add support. Follow-up care Follow up with your healthcare provider, or as advised. If X-rays, a CT scan or an MRI scan were taken, they will be reviewed by a radiologist. You will be notified of any new findings that may affect your care. Call 911 Call 911 if any of the following occur: Trouble breathing Confusion Very drowsy Fainting or loss of consciousness Rapid or very slow heart rate Loss of bowel or bladder control When to seek medical advice Call your healthcare provider right away if any of the following occur: Pain becomes worse or spreads to your arms or legs Weakness or numbness in one or both arms or legs Numbness in the groin area [id number] [employer]. [address] [place] [address]. All rights reserved. This information is not intended as a substitute for professional medical care. Always follow your healthcare professional's instructions. Additional Information VACCINATE! IT SAVES LIVES! Members of the community who have not yet received the COVID-19 vaccine and would like to receive it can visit one of [facility] vaccine clinics. There are many vaccine clinic locations within the [facility]. For locations and available times, please visit [email or web address] g. It is important to note that some COVID mobile vaccine clinics are held outdoors and may be canceled in rainy or stormy conditions. To learn more about pediatric vaccinations (ages 5-11), we invite you to visit the [facility] webpage. https://[email or web address].org/pag es/4861-Hfdrw-Bbrqqhzmveh-Frequent to-Hddqc-Mtznepclt.html To learn more about the COVID-19 vaccine, we invite you to visit the [facility] website for a list of frequently asked questions. [email or web address]/Patient y-rbp-Cqtluxsl/wdevx-Zehttlp-Zhvtt ently_[email or web address]-Questions.pdf [facility] Patient Portal Access Instructions: Stay connected with your healthcare team and access your personal medical information anytime with the [facility] Patient Portal. If you would like a full copy of your medical records please contact the [facility] Medical Records Department Monday through Monday between 8a.m. and 4:30p.m. Please follow the directions below to access the portal: 1.Access the email account you provided upon [facility].2.Look for an invitation email from [facility].3.Open the email and access the invitation link: Accept Invitation to [employer]4.Fill in the required dugan to create your account. Sign into [email or web address] with your username and password that you created in the above steps to stay up to date. You can then view a summary of results, a summary of your visits, and the ability to download your summaries to your computer or send the information securely to a physician. Remember that your healthcare information is confidential, so carefully consider who you will allow to register on the [employer] Patient Portal for access to your information. You can also access the [facility] Patient Portal on the [facility]. Simply click on Health Records under [employer] and then click on the [employer] logo. HOW TO SAFELY DISPOSE OF PRESCRIPTION MEDICATIONS Please use one of the following methods to safely dispose of your unused medications. 1.Use a drug disposal kit: the drug disposal pouch allows you to safely discard your old and unused drugs. Ask your nurse to give you one when you are discharged.2.Visit a local take-back location: Many local pharmacies and police departments have programs that collect old and unwanted prescription drugs. Call your local pharmacy or go to http://Kleer.Eyeona/0K5Wx1h to find one close to you.3.Make use of household items: Use cat litter or old coffee grounds to dispose medications if other options are not available. Mix your drugs with these household products, seal them in an airtight container and throw it into the garbage. Call [facility]: [phone] to be sure your drugs can be disposed of in this way. Some medicines may require a different approach.4.Never flush your medications down the toilet. IF YOU HAVE BEEN PRESCRIBED AN OPIOIDS FOR PAIN If you have been prescribed an opioid (such as hydrocodone, oxycodone or morphine), it is critical to understand the possible side effects and risks of opioid pain medications. Even when taken as directed, opioids can have several side effects including: Tolerance, meaning you might need to take more of a medication for the same pain relief. Nausea, vomiting and/or constipation. Sleepiness, dizziness, dry mouth, confusion, depression or itching. Physical dependence, meaning you have withdrawal symptoms when a medication is stopped ? this can develop within a few days. KNOW YOUR RESPONSIBILITIES It is important to know exactly how much and how often to take the opioid pain medications you are prescribed. Never take opioids in higher amounts or more often than prescribed. Do not combine opioids with alcohol or other drugs that cause drowsiness, such as benzodiazepines, also known as benzos, including diazepam and alprazolam, muscle relaxants or sleep aids. Never sell or share prescription opioids. This is illegal. Store opioids in a secure place and out of reach of others (including children, family, friends and visitors). The last page(s) of this document has been signed and retained as a CHART COPY Signatures Patient Education Materials Back Care Tips Medication Leaflets My discharge plan and instructions have been reviewed and explained to me and IGÓMEZ TERREN E understand my current condition and have read and understand these discharge instructions. I have received a written copy of the plan/instructions. If I have questions, I am aware that I should contact my doctor. Patient/Annealer Helper Signature: Date/Time: Relationship to Patient: ___ Witness Name/Signature: Date/Time: [facility] 11-29-2021 Hospital Discharge instructions Patient Education 11/29/2021 17:54:27 Paraesthesias Paraesthesias Paraesthesia is a burning or prickling sensation that is sometimes felt in the hands, arms, legs or feet. It can also occur in other parts of the body. It can also feel like tingling or numbness, skin crawling, or itching. The feeling is not comfortable, but it is not painful. (The pins and needles feeling that happens when a foot or hand falls asleep is a temporary paraesthesia.) Paraesthesias that last or come and go may be caused by medical issues that need to be treated. These include stroke, a bulging disk pressing on a nerve, a trapped nerve, vitamin deficiencies, uncontrolled diabetes, alcohol abuse, or even certain medicines. Tests are often done. These tests may include blood tests, X-ray, CT (computerized tomography) scan, nerve conduction studies (NCS), or a muscle test (electromyography). Depending on the cause, treatment may include physical therapy. Home care Tell your healthcare provider about all medicines you take. This includes prescription and srio-cpd-hvowimt medicines, vitamins, and herbs. Ask if any of the medicines may be causing your problems. Don't make any changes to prescription medicines without talking to your healthcare provider first. You may be prescribed medicines to help relieve the tingling feeling or for pain. Take all medicines as directed. A numb hand or foot may be more prone to injury. To help protect it: oAlways use oven mitts. oTest water with an unaffected hand or foot. oUse caution when trimming nails. File sharp areas. oWear shoes that fit well to avoid pressure points, blisters, and ulcers. oInspect your hands and feet carefully (including the soles of your feet and between your toes) daily. If you see red areas, sores, or other problems, tell your healthcare provider. Follow-up care Follow up with your doctor, or as advised. You may need further testing or evaluation. When to seek medical advice Call your healthcare provider right away if any of the following occur: Numbness or weakness of the face, one arm, or one leg Slurred speech, confusion, trouble speaking, walking, or seeing Severe headache, fainting spell, dizziness, or seizure Chest, arm, neck, or upper back pain Loss of bladder or bowel control Open wound with redness, swelling, or pus [phone] [employer]. [address] [place], [place] [id number]. All rights reserved. This information is not intended as a substitute for professional medical care. Always follow your healthcare professional's instructions. Follow Up Care 11/29/2021 16:17:37 With:ECTOR REYES DO Address: [address] [place] [address] [place] [phone]- [phone] When:2-[address] [facility] 03-16-2021 Note HNO ID: [id number] Author: Forrest Rivera PA-C Service: ? Author Type: Physician Slurry Plant Operator Type: Progress Notes Filed: 03/16/2021 1:19 PM Note Text: VIRTUAL VISIT PROGRESS NOTE This is a virtual visit using u[employer]ift video visit. It required patient-provider interaction for the medical decision making as documented below. Lou Magaña is a 41 year old year old seen for exposure to COVID-19. Was exposed to girlfriend and parents who all had symptoms of COVID. Parents have COVID. He had been around them and a few days ago he started feeling bad. Having diarrhea, chills, sore throat. Nauseated as well. No fevers. Works in a factory. Today they announced an outbreak and sent folks home. HISTORY REVIEWED (electronic chart updated): PAST MEDICAL HISTORY Diagnosis Date - HTN (hypertension) No past surgical history on file. SOCIAL HISTORY No social history on file. Current Outpatient Medications Medication Sig - lisinopril (ZESTRIL, PRINIVIL) 10 mg tablet Take 10 mg by mouth once daily. - metoprolol succinate ER (TOPROL XL) 50 mg 24 hr tablet - hydroCHLOROthiazide (HYDRODIURIL, ESIDRIX) 25 mg tablet - prochlorperazine (COMPAZINE) 10 mg tablet Take 1 tablet by mouth every 6 hours as needed (nausea). No current facility-administered medications for this visit. ALLERGIES No Known Allergies PHYSICAL EXAMINATION: VIDEO EXAM: (if completed, performed via video enabled technology) GENERAL: alert and appropriate, in no distress and well-hydrated, well nourished SKIN: no rash noted HEAD: normocephalic, no abnormality or lesion noted SINUSES: nontender to self palpation EYES: no injection EARS: hearing grossly normal NOSE: external nose normal without rhinorrhea OROPHARYNX: moist mucus membranes and moist mucus membranes, no tonsillar hypertrophy/exudate, uvula midline and pharynx non-erythematous, lips, teeth and gums are without obvious lesion NECK: full ROM, cervical lymph nodes noted RESPIRATORY: breathing non-labored CHEST: equal chest rise with normal respiratory effort ASSESSMENT/PLAN: 1. Exposure to COVID-19 virus - ICD9: V01.79, ICD10: Z20.822 - 2019 CORONAVIRUS Said didn't need a work note or anything else. Forrest Rivera PA-C [facility] Evaluation + Plan note Future Appointments Appointment Date:02/17/2022 09:00:00 AM Scheduled Provider:ECTOR REYES DO Location:[facility] Appointment Type:PC OV Follow Up Future Scheduled TestsThyroid Stimulating Hormone 05/05/21Lipid Profile 05/05/21Complete Metabolic Panel 05/05/21COVID-19 Only (AO) 03/16/21 [facility] Evaluation + Plan note Future Appointments Appointment Date:02/17/2022 09:00:00 AM Scheduled Provider:ECTOR REYES DO Location:[facility] Appointment Type:PC OV Follow Up Future Scheduled TestsThyroid Stimulating Hormone 05/05/21Complete Blood Count 12/01/21Lipid Profile 05/05/21Lipid Profile 12/01/21Hepatitis C Antibody IgG 12/01/21Complete Metabolic Panel 05/05/21Complete Metabolic Panel 12/01/21COVID-19 Only (AO) 03/16/21 [facility] Evaluation + Plan note Future Appointments Appointment Date:12/07/2022 09:30:00 AM Scheduled Provider:ECTOR REYES DO Location:[facility] Appointment Type:PC Wellness Annual Future Scheduled TestsProstate Specific Antigen 12/03/22Thyroid Stimulating Hormone 12/03/22Complete Blood Count 12/03/22Complete Blood Count 12/01/21Lipid Profile 12/03/22Lipid Profile 12/01/21Hepatitis C Antibody IgG 12/03/22Hepatitis C Antibody IgG 12/01/21Complete Metabolic Panel 12/03/22Complete Metabolic Panel 12/01/21 [facility] N[facility] No data available for this section [facility] Hospital Discharge instructions No data available for this section [facility] Progress note No data available for this section [facility] Reason for referral (narrative)* Consultation (Routine) - Pending Review Specialty Diagnoses / Procedures Referred By Marci montez Referred To Contact Vascular Surgery Diagnoses Asymptomatic varicose veins of right lower extremity Procedures OK OFFICE/OUTPATIENT NEW HIGH MDM 60-74 MINUTES Jennifer Campoverde DO [address] [facility] [address] [place] [address] [place] [address] [place] [address] Referral ID Status Reason Start Date Expiration Date Visits Requested Visits Authorized [id number] Pending Review Specialty Services Required 3 06/13/2024 1 1 [facility] Health Summary Purpose Family History No Family History Records FoundNo Family History Records FoundNo Family History Records Found Advance Directives No Advanced Directives Records FoundNo Advanced Directives Records FoundNo Advanced Directives Records Found Additional Source Comments (unrecognized sect ion and content) No Status Records FoundNo Status Records FoundNo Status Records Found INFORMATION SOURCE (unrecogn ized section and content) DATE CREATED AUTHOR AUTHOR'S ORGANIZ ATION 02/23/2023 [facility] ([place]) DATE CREATED AUTHOR AUTHOR'S ORGANIZ ATION 06/16/2023 [facility] Care Team (unrecognized sect ion and content) Mend Worker Relationship Specialty Start Date End Date Jennifer Campoverde DO [address] [place] [address] PCP - General Internal Medicine 06/14/23 Care Team (unrecognized sect ion and content) Care Team Personnel Name: ECTOR REYES DO Position: P4 Physician - Primary Care Med Service: Active Provider Member Role: Primary Care Physician Address: Address: [address] [place] [address] [place] [address] [place] Care Team Related Persons Name: MARILYN MAGAÑA Name: MARILYN MAGAÑA Reason for Visit (unrecogniz ed section and content) Reason Onset Date Comments Appointment 06/09/2023 [facility] scheduled FOR RECORDS PERTAINING TO PATIENTS WHO ARE OR HAVE BEEN ENROLLED IN A CHEMICAL DEPENDENCY/SUBSTANCEABUSE PROGRAM, SOME INFORMATION MAY BE OMITTED. This clinical summary was aggregated from multiple sources. Caution should be exercised in using it in the provision of clinical care. This summary normalizes information from multiple sources, and as a consequence, information in this document may materially change the coding, format and clinical context of patient data. In addition, data may be omitted in some cases. CLINICAL DECISIONS SHOULD BE BASED ON THE PRIMARY CLINICAL RECORDS. [facility] [employer] [facility]. provides no warranty or guarantee of the accuracy or completeness of information in this document.
== END 2023-09-07 14:31 | disposition home or self-care (01) ==
PROVIDERS: Emergency Provider Emergency Medicine; Visit Provider Emergency Medicine
DX: I83.891 Varicose veins of right lower extremity with other complications (principal); I10 Essential (primary) hypertension; Z79.899 Other long term (current) drug therapy
CPT/HCPCS: 99283